=== PATIENT | male | born 1990 | race Two or more races ===

== ENCOUNTER 2017-10-03 13:39 | Emergency (ER) | payer OTHER ==
[~2017-10-03] VITALS: Ht 165.1 cm; Wt 72.6 kg
[2017-10-03] MEDS ORDERED: TDAP [DIPH/PERTUSSIS/TET] 0.5 ML VIAL IM ONE ×2 (13:59→14:00)
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
--- NOTE | 2017-10-03 14:07 | NUR ---
PT TO RADIOLOGY FOR CT HEAD AND L ORBTAL VIA WHEELCHAIR.
[2017-10-03] MEDS ORDERED: TETRACAINE HCL/PF 0.5% UD 2 ML BOTTLE ONE (15:00)
[2017-10-03] MEDS ORDERED: TETRACAINE HCL/PF 0.5% UD 2 ML BOTTLE EACHEYE ONE (15:00)
[2017-10-03] MEDS ORDERED: FLUORESCEIN SODIUM OPHTH 1 EA STRIP ONE (15:00)
--- NOTE | 2017-10-03 15:10 | NUR ---
ABHINAV OLIVIER AT BEDSIDE FOR CORNEAL ABRASION TEST.
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
[2017-10-03 16:25] VITALS: BP 118/84
== END 2017-10-03 16:26 ==
LOC: ER 13:40
DX: Z02.89 Encounter for other administrative examinations (principal); S02.32XA Fracture of orbital floor, left side, initial encounter for closed fracture; S01.112A Laceration without foreign body of left eyelid and periocular area, initial encounter; Z88.0 Allergy status to penicillin; Y04.8XXA Assault by other bodily force, initial encounter; Y93.89 Activity, other specified; Y92.89 Other specified places as the place of occurrence of the external cause; Y99.8 Other external cause status
CPT/HCPCS: 70450-TC; 70480-TC; 90715; A4606; A6402; Z7610

== ENCOUNTER 2020-01-26 11:41 | Emergency (ER) | payer OTHER ==
[~2020-01-26] VITALS: Ht 165.1 cm; Wt 72.6 kg
[2020-01-26 11:48] VITALS: BP 137/82
--- NOTE | 2020-01-26 11:59 | NUR ---
SEEN AND EXAMINED BY .
--- NOTE | 2020-01-26 13:13 | NUR ---
Patient discharged in custody in stable condition. Written and verbal after care instructions given. Patient verbalizes understanding of instruction.
== END 2020-01-26 13:14 ==
LOC: ER 11:44
DX: S90.31XA Contusion of right foot, initial encounter (principal); S60.221A Contusion of right hand, initial encounter; Z88.0 Allergy status to penicillin; Y08.89XA Assault by other specified means, initial encounter; Y93.89 Activity, other specified; Y92.89 Other specified places as the place of occurrence of the external cause; Y99.8 Other external cause status
CPT/HCPCS: 73130-TC; 73630-TC